=== PATIENT | male | born 1980 | race African-American/Black ===

== ENCOUNTER 2019-03-02 07:39 | Emergency (ER) | payer MEDICAID ==
[~2019-03-02] VITALS: Ht 182.9 cm; Wt 89.0 kg
[2019-03-02] MEDS ORDERED: ACETAMINOPHEN 325MG TABLET PO STA (08:45)
[2019-03-02 12:51] LABS: BASOPHILS % 0.8 % (0.0-2.0); EOSINOPHILS % 0.9 % (0.0-5.0); HEMATOCRIT. 42.1 % (42.0-52.0); HEMOGLOBIN. 14.1 g/dL (14.0-18.0); LYMPHOCYTES % 29.6 % (20.0-50.0); MEAN CORPUSCULAR VOLUME 86.7 fL (80.0-94.0); MEAN PLATELET VOLUME 7.1 fl (7.4-10.4); MONOCYTES % 6.7 % (2.0-8.0); PLATELET 313 x1000/uL (130-400); RED BLOOD CELL COUNT 4.86 mill/uL (4.7-6.1); RED CELL DISTRIBUTION WIDTH 13.2 % (11.6-14.6)
[2019-03-02 12:59] LABS: CHLORIDE 105 mEq/L (98-107)
[2019-03-02 14:18] VITALS: BP 115/80
== END 2019-03-02 14:19 | disposition home or self-care (01) ==
LOC: ER 08:50
DX: J18.1 Lobar pneumonia, unspecified organism (principal); F12.10 Cannabis abuse, uncomplicated; F17.200 Nicotine dependence, unspecified, uncomplicated
CPT/HCPCS: 36415; 71045; 71250; 80048; 99284

== ENCOUNTER 2020-02-05 10:37 | Emergency (ER) | payer MEDICAID, OTHER ==
[~2020-02-05] VITALS: Ht 188 cm; Wt 96.0 kg
[2020-02-05] MEDS ORDERED: HYDROCODONE/ACETAMINOPHEN 5/325MG TABLET PO STA (11:32)
[2020-02-05 12:01] LABS: BASOPHILS % 0.4 % (0.0-2.0); EOSINOPHILS % 0.5 % (0.0-5.0); HEMATOCRIT. 41.9 % (42.0-52.0); HEMOGLOBIN. 14.2 g/dL (14.0-18.0); LYMPHOCYTES % 28.6 % (20.0-50.0); MEAN CORPUSCULAR HEMOGLOBIN 30.1 pg (28.0-32.0); MEAN CORPUSCULAR VOLUME 88.8 fL (80.0-94.0); MEAN PLATELET VOLUME 8.2 fl (7.4-10.4); MONOCYTES % 7.7 % (2.0-8.0); NEUTROPHILS % 62.8 % (40.0-76.0); PLATELET 166 x1000/uL (130-400); RED BLOOD CELL COUNT 4.72 mill/uL (4.7-6.1)
[2020-02-05 12:02] LABS: CHLORIDE 107 mEq/L (98-107)
[2020-02-05 12:10] VITALS: BP 134/82
== END 2020-02-05 14:46 | disposition home or self-care (01) ==
LOC: ER 10:50
DX: R04.2 Hemoptysis (principal); R51 Headache; E11.9 Type 2 diabetes mellitus without complications; F17.200 Nicotine dependence, unspecified, uncomplicated; Z71.6 Tobacco abuse counseling
CPT/HCPCS: 36415; 71045; 80053; 83880; 84484; 85025; 93005; 99285; 99406

== ENCOUNTER 2020-04-05 16:37 | Emergency (ER) | payer MEDICAID ==
[~2020-04-05] VITALS: Ht 188 cm; Wt 94.0 kg
[2020-04-05 18:30] LABS: HEMOGLOBIN 14.8 g/dL (14.0-18.0); MEAN CORPUSCULAR HEMOGLOBIN 29.4 pg (28.0-32.0); PLATELET 161 x1000/uL (130-400); RED BLOOD CELL COUNT 5.05 mill/uL (4.7-6.1)
[2020-04-05 18:36] LABS: CHLORIDE 109 mEq/L (98-107); INR 1.1; PARTIAL THROMBOPLASTIN TIME 28.3 sec (23.4-31.0); PROTHROMBIN TIME 11.1 sec (9.6-11.0)
[2020-04-05 22:00] VITALS: BP 138/89
[2020-04-06] MEDS ORDERED: RIVAROXABAN 20 MG TABLET PO SCH (20:00)
== END 2020-04-05 22:09 | disposition home or self-care (01) ==
LOC: ER 16:37
DX: I82.431 Acute embolism and thrombosis of right popliteal vein (principal); I26.99 Other pulmonary embolism without acute cor pulmonale; I82.401 Acute embolism and thrombosis of unspecified deep veins of right lower extremity; E11.9 Type 2 diabetes mellitus without complications; F17.200 Nicotine dependence, unspecified, uncomplicated; Z71.6 Tobacco abuse counseling; Z86.718 Personal history of other venous thrombosis and embolism
CPT/HCPCS: 36415; 71045; 80048; 82962; 85027; 93005; 99285; 99406

== ENCOUNTER 2021-10-07 10:01 | Emergency (ER) | payer OTHER ==
[~2021-10-07] VITALS: Ht 185.4 cm; Wt 92.0 kg
[~2021-10-07 10:01] MED LIST: METF-414 PO
[2021-10-07] MEDS ORDERED: ONDANSETRON 4MG ODT PO ONE (10:15)
[2021-10-07] MEDS ORDERED: HYDROCODONE/ACETAMINOPHEN 5/325MG TABLET PO ONE (10:15)
[2021-10-07 11:18] VITALS: BP 138/88
== END 2021-10-07 11:24 | disposition home or self-care (01) ==
LOC: ER 10:01
DX: S09.8XXA Other specified injuries of head, initial encounter (principal); Y08.89XA Assault by other specified means, initial encounter; Y93.89 Activity, other specified; Y92.89 Other specified places as the place of occurrence of the external cause; Y99.8 Other external cause status; R42 Dizziness and giddiness; E11.9 Type 2 diabetes mellitus without complications; F12.10 Cannabis abuse, uncomplicated
CPT/HCPCS: 70450; 99284; Q0162

== ENCOUNTER 2023-01-26 08:33 | Emergency (ER) | payer MEDICAID, OTHER ==
[~2023-01-26] VITALS: Ht 185.4 cm; Wt 90.0 kg
[2023-01-26 08:38] VITALS: O2SAT 98
[2023-01-26] MEDS ORDERED: IBUPROFEN 400MG TABLET PO NR (09:30)
[2023-01-26] MEDS ORDERED: IBUP-2030 MT (09:30)
[2023-01-26 10:03] VITALS: BP 128/73; PULSE 94; RESP 16; TEMP 98.5
== END 2023-01-26 10:15 | disposition home or self-care (01) ==
LOC: ER 08:42
DX: S62.317A Displaced fracture of base of fifth metacarpal bone, left hand, initial encounter for closed fracture (principal); E11.9 Type 2 diabetes mellitus without complications; F12.90 Cannabis use, unspecified, uncomplicated; W22.01XA Walked into wall, initial encounter; Y93.89 Activity, other specified; Y92.89 Other specified places as the place of occurrence of the external cause; Y99.8 Other external cause status
CPT/HCPCS: 29125; 73130; 99283

== ENCOUNTER 2024-01-12 12:18 | Inpatient (IN) | payer MEDICAID, OTHER ==
[~2024-01-12] VITALS: Ht 185.4 cm; Wt 86.2 kg
[~2024-01-12 12:18] MED LIST changes: +IBUP-2030 MT
[2024-01-12] MEDS: VANCOMYCIN 1G PREMIX 200 ML IV ONE (14:37)
[2024-01-12] MEDS: SODIUM CHLORIDE 0.9% 1000ML BAG (SEPSIS BOLUS) IV ONE (14:38)
[2024-01-12 14:39] LABS: CHLORIDE 106 mEq/L (98-107); POTASSIUM 4.2 mEq/L (3.5-5.1); SODIUM 139 mEq/L (136-145)
[2024-01-12 14:40] LABS: CARBON DIOXIDE 27 mEq/L (21-32)
[2024-01-12 14:41] LABS: CALCIUM 9.6 mg/dL (8.7-10.4)
[2024-01-12 14:44] LABS: BASOPHILS % 0.4 % (0.0-2.0); EOSINOPHILS % 0.4 % (0.0-5.0); HEMATOCRIT. 41.3 % (42.0-52.0); HEMOGLOBIN. 13.5 g/dL (14.0-18.0); LYMPHOCYTES % 35.9 % (20.0-50.0); MEAN CORPUSCULAR HEMOGLOBIN 29.9 pg (28.0-32.0); MEAN CORPUSCULAR HGB CONC 32.8 g/dL (31.0-37.0); MEAN CORPUSCULAR VOLUME 91.2 fL (80.0-94.0); MONOCYTES % 9.4 % (2.0-8.0); NEUTROPHILS % 53.9 % (40.0-76.0); PLATELET 188 x1000/uL (130-400); RED BLOOD CELL COUNT 4.52 mill/uL (4.7-6.1); RED CELL DISTRIBUTION WIDTH 14.4 % (11.6-14.6); WHITE BLOOD COUNT 9.2 x1000/uL (4.5-11.0)
[2024-01-12 14:45] LABS: CREATININE 0.8 mg/dL (0.6-1.3); GLUCOSE 71 mg/dL (70-105); UREA NITROGEN BLOOD 8 mg/dL (9-23)
[2024-01-12 15:04] LABS: INR 0.9; PROTHROMBIN TIME 10.3 sec (9.6-11.0)
[2024-01-12 16:21] LABS: CLARITY URINE CLEAR (CLEAR); COLOR URINE YELLOW (YELLOW); GLUCOSE URINE NEGATIVE (NEGATIVE); KETONES URINE NEGATIVE (NEGATIVE); LEUKOCYTE ESTERASE URINE NEGATIVE (NEGATIVE); NITRITE URINE NEGATIVE (NEGATIVE); OCCULT BLOOD URINE NEGATIVE (NEGATIVE); PH URINE 5.5 (4.5-8.0); PROTEIN URINE TRACE (NEGATIVE); SPECIFIC GRAVITY URINE 1.017 (1.005-1.030); UROBILINOGEN URINE 0.2 E.U./dL (0.2-1.0)
[2024-01-12] MEDS ORDERED: IPRATROPIUM/ALBUTEROL 0.5-3(2.5)MG/3ML NEB HHN PRN (16:30)
[2024-01-12] MEDS ORDERED: ONDANSETRON HCL 4MG/2ML INJ IV PRN (16:30)
[2024-01-12] MEDS ORDERED: NALOXONE HCL 0.4MG/ML VIAL IV PRN (16:45)
[2024-01-12] MEDS: LEVOFLOXACIN 500MG PREMIX 100 ML IV NR (17:09)
[2024-01-12 17:40] LABS: BACTERIA URINE TRACE; RBC URINE NONE SEEN /hpf (0-2); SQUAMOUS EPITHELIAL CELL URINE RARE /lpf (RARE/1+); WBC URINE NONE SEEN /hpf (0-2)
[2024-01-12 23:52] VITALS: BP 113/68; PULSE 75; RESP 18; TEMP 36.3068
[2024-01-13] VITALS: BP 113/68; PULSE 75; RESP 18; TEMP 36.28068; O2SAT 99
[2024-01-13] MEDS: HYDROCODONE/ACETAMINOPHEN 5/325MG TABLET PO PRN (00:34)
[2024-01-13] MEDS ORDERED: METF-414 PO (00:53)
[2024-01-13] MEDS ORDERED: APIX2.5T PO (00:57)
[2024-01-13] MEDS ORDERED: DEXTROSE 50% WATER 50ML SYRINGE IV PRN (01:15)
[2024-01-13] MEDS ORDERED: *PATIENT'S OWN MEDICATION STORAGE XX SCH (01:30)
[2024-01-13 04:00] VITALS: BP 100/55; PULSE 68; RESP 18; TEMP 36.28068; O2SAT 99
[2024-01-13] MEDS: BLOOD SUGAR DIAGNOSTIC STRIP TEST SCH (07:36)
[2024-01-13] MEDS: INSULIN LISPRO 100 UNITS/ML SUBCUT SCH (07:50)
[2024-01-13 08:00] VITALS: BP 101/57; PULSE 61; RESP 18; TEMP 36.55848
[2024-01-13] MEDS: APIXABAN 5 MG TABLET PO SCH (09:00)
[2024-01-13 12:00] VITALS: BP 110/65; PULSE 60; RESP 19; TEMP 36.114; O2SAT 100
[2024-01-13 12:13] LABS: *AMPHETAMINES SCREEN URINE NEGATIVE (NEGATIVE); *BARBITURATES SCREEN URINE NEGATIVE (NEGATIVE); *BENZODIAZEPINES SCREEN URINE NEGATIVE (NEGATIVE); *COCAINE SCREEN URINE NEGATIVE (NEGATIVE)
[2024-01-13 12:14] LABS: CANNABINOID URINE SCREEN NEGATIVE (NEGATIVE); ECSTASY MDMA SCREEN URINE NEGATIVE (NEGATIVE); METHADONE URINE SCREEN NEGATIVE (NEGATIVE); OPIATES URINE SCREEN NEGATIVE (NEGATIVE); PHENCYCLIDINE URINE SCREEN NEGATIVE (NEGATIVE)
[2024-01-13] MEDS ORDERED: GLIP5TAB22 PO (18:48)
[2024-01-13 20:00] VITALS: BP 100/54; PULSE 66; RESP 18; TEMP 36.3918; O2SAT 99
[2024-01-13] MEDS: COLCHICINE 0.6MG TABLET PO SCH (21:52)
[2024-01-14] VITALS: BP 107/67; PULSE 61; RESP 18; TEMP 36.61404; O2SAT 97
[2024-01-14 04:00] VITALS: BP 119/71; PULSE 50; RESP 18; TEMP 36.44736; O2SAT 100
[2024-01-14 08:00] VITALS: BP 122/75; PULSE 60; RESP 19; TEMP 37.00296; O2SAT 100
[2024-01-14 12:00] VITALS: BP 90/57; PULSE 59; RESP 18; TEMP 37.05852; O2SAT 100
[2024-01-14 13:46] VITALS: BP 122/75; PULSE 60; TEMP 96.8; O2SAT 100
[2024-01-14] MEDS ORDERED: COLC0.6C3 MT (14:18)
== END 2024-01-14 16:07 | disposition home or self-care (01) | DRG 351 ==
LOC: ER 12:27 → 5WST 15:44 → EDBEDREQ 15:50 → EDBEDREQSVC 17:45 → 6WST 23:27
PROVIDERS: ADMIT Internal Medicine; ATTEND Internal Medicine
DX: M79.672 Pain in left foot (principal); E11.9 Type 2 diabetes mellitus without complications; M10.9 Gout, unspecified; Z86.718 Personal history of other venous thrombosis and embolism; Z79.899 Other long term (current) drug therapy
CPT/HCPCS: 36415; 73630; 73718; 80048; 80305; 81003; 82962; 83605; 84145; 84550; 85025; 93005; 93970; 99291; J1956; J3370; J7030